=== PATIENT | female | born 1985 | race Two or more races ===

== ENCOUNTER 2018-02-16 14:44 | Emergency (ER) | payer MEDICAID ==
[~2018-02-16] VITALS: Ht 160 cm; Wt 72.7 kg
[2018-02-16] MEDS ORDERED: DEXAMETHASONE SOD PHOS 4 MG/ML 5 ML VIAL IM ONE (16:15)
[2018-02-16 17:25] VITALS: BP 130/92
== END 2018-02-16 17:40 | disposition home or self-care (01) ==
LOC: EMS 14:45
DX: H69.81 Other specified disorders of Eustachian tube, right ear (principal)
CPT/HCPCS: 96372; 99283; J1100